=== PATIENT | female | born 1995 | race Caucasian/White ===

== ENCOUNTER 2017-02-08 10:04 | Emergency (ER) | payer OTHER ==
--- NOTE | ~2017-02-08 | ER ---
PATIENT'S NAME: JAI CHAVIRA [facility] AGE: 21 Y [address] ROOM: [place] [address] LOCATION: [facility] ADMIT DATE: 02/08/2017 ER/Outpatient Report DISCHARGE DATE: 02/08/2017 FAMILY PHYSICIAN: Anuradha Crowell MD ATTENDING PHYSICIAN: Moises Nichols Jai is a 21-year-old female who was seen by Dr. Nichols on February 08 with diarrhea that started late Saturday evening. She has had four bloody stools per day since then. She has had two today so far. She did have stool studies done that came back positive for Shiga toxin 2 and notified her. She said she had fever and chills initially, but she is no longer having fever and chill. She is continuing to have bloody stools. She has had two so far today. She has some slight nausea. The abdominal cramping is improved with ibuprofen. I reviewed her labs from yesterday. Her chemistry panel was remarkable for a potassium of 3.6, CRP was elevated at 1.76. Procalcitonin was normal. The CT scan done showing diffuse colitis and then an incidental bicornuate uterus, symptomatic. Treatment was recommended, and the patient was to follow up on Saturday or Saturday. She had a white blood cell count done at [facility], white blood cell count 13.5, hemoglobin 15.1. I notified her of her results of Shiga toxin 2, recommended supportive care and management. She will continue with this. I am calling her and some Zoan through [employer]. She has no allergies. Zofran 4 mg q.6 hours p.r.n. nausea, dispensed 4 with 0 refills, and I notified Dr. Dugan who is on-call for Dr. Crowell, and she will follow up on Saturday as directed, sooner if any problems. The patient understands. MD SHIVAM LUCAS/duncanl /[id number] d: 02/09/17 1225 t: 02/10/17 0726, OUTPATIENT REPORT
--- NOTE | ~2017-02-08 | ER ---
PATIENT'S NAME: JAI CARREON [facility] AGE: 21 Y [address] ROOM: [place] [address] LOCATION: ED ADMIT DATE: 02/08/2017 ER/Outpatient Report DISCHARGE DATE: 02/08/2017 FAMILY PHYSICIAN: Anuradha Crowell MD ATTENDING PHYSICIAN: Moises Nichols CHIEF COMPLAINT: Abdominal pain and bloody stool. HISTORY OF PRESENT ILLNESS: Ms. Carreon presents by private auto from [facility]. She was seen and evaluated there and found to have abdominal pain and elevated white count, transferred here for further evaluation. She states her pain started on Saturday and bloody stool started last night. She has been having diarrhea with this. Her abdominal pain is chiefly in the upper areas. Based on exam at [facility], there was concern for right lower quadrant pain and she was sent here for further evaluation. She states that she is on control, takes it regularly. She is sexually active. She is about ready to have her menses. She denies any other vaginal discharge or history of STI. No acute vaginal bleeding or pain. Symptoms do not change with meals. There has been no significant nausea or vomiting associated with this. No fevers. PAST MEDICAL HISTORY: Documented on the record and reviewed by me. SOCIAL HISTORY: Documented on the record and reviewed by me. MEDICATIONS: Documented on the record and reviewed by me. ALLERGIES: DOCUMENTED ON THE RECORD AND REVIEWED BY ME. REVIEW OF SYSTEMS: All systems reviewed and negative except as noted in the HPI. PHYSICAL EXAMINATION: VITAL SIGNS: Blood pressure is 121/79, pulse 84, respiratory rate is 18, temperature 98 degrees, SpO2 is 100% on room air. Pain is rated 5/10. GENERAL: Age-appropriate female. Emotionally distraught. No apparent pain or distress otherwise. NEUROLOGIC: Awake and alert. GCS is 15. No focal deficits. No asymmetry. PSYCH: The patient is distraught. She is scared of needles and in the overall situation feels overwhelmed, but otherwise unremarkable. No thoughts PATIENT'S NAME: JAI CARREON [facility] AGE: 21 Y [address] ROOM: [place] [address] LOCATION: ED ADMIT DATE: 02/08/2017 ER/Outpatient Report DISCHARGE DATE: 02/08/2017 FAMILY PHYSICIAN: Anuradha Crowell MD ATTENDING PHYSICIAN: Moises Nichols of self-harm. HEENT: Normocephalic and atraumatic. Eyes are PERRL. Oropharynx is clear. NECK: Supple. Trachea is midline. CHEST/HEART: Regular rate and rhythm with no murmurs. LUNGS: Clear to auscultation bilaterally. No rhonchi, wheezes, or rales. ABDOMEN: Soft, nontender, and nondistended. No rebound or guarding. BACK: Normal to inspection and palpation. EXTREMITIES: Warm, well formed, well perfused. RECTAL: Notable for significant rectal tone with some scant red stool in the rectal vault. No masses, fissures, or hemorrhoids. LABORATORIES AND X-RAYS: Hemoccult is positive. Urine from [facility] was negative and documented. Coags are appropriate. CMS is without appreciable abnormality. CRP is 1.76. Procalcitonin is undetectable. Lactate is 1.2. Gonorrhea and chlamydia are not detected in the urine. Urinalysis is notable for bacteriuria, but otherwise unremarkable. CT scan of the abdomen, positive for colitis and bicornuate uterus. No clear other pathology acutely. No appendicitis. IMPRESSION: 1. Colitis, likely infectious. 2. Bicornuate uterus. Incidental finding. EMERGENCY DEPARTMENT COURSE: The patient was seen and evaluated as above. Her presentation was concerning for bowel pathology. History is most consistent with infectious colitis. She was unable to provide stool sample here and she was given outpatient order for stool studies. She was given a liter of normal saline with improvement in her symptoms, overall feeling much better. CT scan was obtained and discussed with the patient. I did inform her of the bicornuate uterus. I informed her that she needs to follow up with her preferred primary care provider [employer] for this issue and any further questions she may have for any reproductive implications. The degree of the finding is not specified after discussion with radiologist. Her abdominal discomfort, time course, and Hemoccult- positive stool with the diarrhea is most consistent with infectious colitis. No recent antibiotics, hospitalization, or travel to exotic places other than [place]. She is afebrile and appears well hydrated. We will have her bring a stool sample back if possible. All questions were answered and the patient was discharged in stable condition with instructions to use Pepto- Bismol and [id number] anti-inflammatories as needed for the abdominal discomfort and to avoid antimotility medications. The patient is to follow up PATIENT'S NAME: JAI CARREON [facility] AGE: 21 Y [address] ROOM: [place], [place] [address] LOCATION: [facility] ADMIT DATE: 02/08/2017 ER/Outpatient Report DISCHARGE DATE: 02/08/2017 FAMILY PHYSICIAN: Anuradha Crowell MD ATTENDING PHYSICIAN: Moises Nichols with primary care physician first part of next week if not markedly improved. MD KAROLINE MCKINNEY/genia /[id number] d: t: 02/09/17 0045, OUTPATIENT REPORT
[2017-02-08 10:48] LABS: BLOOD URINE 25 /UL (NEGATIVE); GLUCOSE URINE NEGATIVE (NEGATIVE); KETONE URINE 150 mg/dL (NEGATIVE); LEUKOCYTES URINE 25 /UL (NEGATIVE); NITRITE URINE NEGATIVE (NEGATIVE); PROTEIN URINE 30 mg/dL (NEGATIVE); TURBIDITY URINE 1+ (CLEAR); UROBILINOGEN URINE 1 mg/dL (NORMAL)
[2017-02-08 10:50] LABS: COLOR URINE AMBER (YELLOW)
[2017-02-08 10:54] LABS: BACTERIA URINE MODERATE (NEGATIVE); MUCUS URINE 3+ (NEGATIVE); WBC URINE 0-2 #/HPF (NEGATIVE)
[2017-02-08 10:57] LABS: INR - (THERAPEUTIC) 1.03 (0.92-1.07); PROTIME 10.8 SECONDS (9.8-11.4)
[2017-02-08 11:11] LABS: ALBUMIN 3.6 gm/dL (3.5-5.0); ALK PHOS 50 IU/L (33-138); ALT 54 IU/L (12-78); ANION GAP 9.6 (10.0-19.0); AST 27 IU/L (10-40); BLOOD UREA NITROGEN 6 mg/dL (6-24); CALCIUM 9.1 mg/dL (8.5-10.5); CHLORIDE 106 mMol/L (96-110); CO2 25 mMol/L (22-32); CREATININE 0.7 mg/dL (0.5-1.1); POTASSIUM 3.6 mMol/L (3.7-5.1); SODIUM 137 mMol/L (135-145); TOTAL BILIRUBIN 0.5 mg/dL (0.0-1.5); TOTAL PROTEIN 7.8 g/dL (6.0-8.4)
== END 2017-02-08 12:48 | disposition disaster alternative care site (69) ==
LOC: GMED 10:04
PROVIDERS: Emergency Medicine
DX: K52.9 Noninfective gastroenteritis and colitis, unspecified (principal); Q51.3 Bicornate uterus; Z79.3 Long term (current) use of hormonal contraceptives
CPT/HCPCS: J7030; Q9967

== ENCOUNTER → 2017-02-08 | Outpatient (CLI) | payer OTHER | END | disposition disaster alternative care site (69) | LOC: GLAB 13:42 | DX: R10.9 Unspecified abdominal pain (principal); R19.7 Diarrhea, unspecified ==